=== PATIENT | male | born 1990 | race Caucasian/White ===

== ENCOUNTER 2018-02-16 22:59 | Emergency (ER) | payer OTHER ==
[~2018-02-16] VITALS: Ht 177.8 cm; Wt 90.8 kg
[2018-02-16 23:30] LABS: HEMATOCRIT 45.8 % (38.0-50.0); HEMOGLOBIN 16.8 G/DL (12.5-16.6); MCH 29.9 PG (29.0-34.0); MCHC 36.7 G/DL (30.0-36.0); MCV 81.5 FL (86-99); PLATELET COUNT 312 K/uL (156-360); RBC DIS.WIDTH-SD 35.4 % (39-53); RED BLOOD COUNT 5.62 M/uL (4.00-5.50); WHITE BLOOD COUNT 20.4 K/uL (4.1-10.2)
[2018-02-16 23:38] LABS: ALBUMIN 4.6 g/dL (3.2-4.8)
[2018-02-16 23:39] LABS: CHLORIDE 108 mEq/L (99-109); POTASSIUM 3.6 mEq/L (3.7-5.4); SODIUM 141 mEq/L (136-147)
[2018-02-16 23:41] LABS: GLUCOSE 127 mg/dL (70-99); TOTAL PROTEIN 7.1 g/dL (6.4-8.3)
[2018-02-16 23:43] LABS: TOTAL BILIRUBIN 0.8 mg/dL (0.0-1.0)
[2018-02-16 23:44] LABS: APPEARANCE CLEAR ((CLEAR)); BILIRUBIN NEGATIVE; BLOOD MODERATE; COLOR YELLOW ((YELLOW)); GLUCOSE (STRIP) NEGATIVE; KETONES 20; LEUKOCYTES NEGATIVE; NITRITE NEGATIVE; PROTEIN (STRIP) 30; SPECIFIC GRAVITY 1.024 (1.000-1.030)
[2018-02-16 23:44] LABS: ALKALINE PHOSPHATASE 65 IU/L (3-129)
[2018-02-16 23:45] LABS: CREATININE 1.2 mg/dL (0.6-1.3); GFR ESTIMATE (CALCULATED) > 59 mL/min/ (58.99-99999)
[2018-02-16 23:46] LABS: AST (GOT) 18 IU/L (2-34); UREA NITROGEN (BUN) 9 mg/dL (9-23)
[2018-02-16 23:48] LABS: ALT (GPT) 32 IU/L (3-49); LIPASE 11 U/L (1.0-51.0)
[2018-02-16 23:53] LABS: BACTERIA RARE /HPF; EPITHELIAL CELLS RARE /HPF; HYALINE CASTS 0-5 /LPF; MUCUS 4+ /LPF; RED BLOOD CELLS TNTC /HPF (0-5); UCUL ADDED? YES; WHITE BLOOD CELLS 0-5 /HPF (0-5)
[2018-02-17 01:42] LABS: AMPHETAMINE NEGATIVE (500 ng/mL); BARBITURATES NEGATIVE (200 ng/mL); BENZODIAZEPINES NEGATIVE (150 ng/mL); BUPRENORPHINE NEGATIVE (10 ng/mL); COCAINE NEGATIVE (150 ng/mL); METHADONE NEGATIVE (200 ng/mL); METHAMPHETAMINE NEGATIVE (500 ng/mL); OPIATES (MORPHINE) NEGATIVE (100 ng/mL); OXYCODONE NEGATIVE (100 ng/mL); PHENCYCLIDINE NEGATIVE (25 ng/mL); PROPOXYPHENE NEGATIVE (300 ng/mL); THC CANNABINOIDS PRESUMPTIVE POSITIVE (50 ng/mL); TRICYCLIC ANTIDEPRESSANTS NEGATIVE (300 ng/mL)
[2018-02-17] MEDS ORDERED: FLOMAX0.4 MG PO (02:08)
[2018-02-17] MEDS ORDERED: ZOFRAN ODT4 MG PO (02:08)
[2018-02-17] MEDS ORDERED: PERCOCET 5/31 TABLET PO (02:08)
[2018-02-17 02:40] VITALS: BP 114/66
[2018-02-17 05:31] LABS: CREATINE KINASE 111 IU/L (1-294)
== END 2018-02-17 02:41 | disposition home or self-care (01) ==
LOC: EME 22:59
DX: N13.2 Hydronephrosis with renal and ureteral calculous obstruction (principal); R00.1 Bradycardia, unspecified; F12.90 Cannabis use, unspecified, uncomplicated; R42 Dizziness and giddiness; F17.200 Nicotine dependence, unspecified, uncomplicated
CPT/HCPCS: 74176; 80053; 81003; 82550; 83690; 84999; 85027; 87086; 93005; 99281; 99285; J1885; J2405; J3010; J7030